=== PATIENT | male | born 1995 | race Caucasian/White ===

== ENCOUNTER → 2017-06-19 | Outpatient (CLI) | payer BC, OTHER ==
[2016-04-14 08:20] VITALS: BP 117/80
--- NOTE | 2017-06-19 12:14 | RAD ---
Bilateral ribs and single view chest 06/19/2017. Clinical indication: Bilateral rib pain, greater on the left. Comparison: None. Findings: Cardiac and mediastinal silhouettes are unremarkable. No pleural effusion, pneumothorax or focal consolidation. No evidence of acute displaced rib fracture deformity. Impression: 1. No acute cardiopulmonary abnormality. 2. No evidence of acute displaced rib fracture deformity.
== END | disposition home or self-care (01) ==
LOC: PMG 09:29
PROVIDERS: ATTEND Physician Assistant Medical
DX: R07.81 Pleurodynia (principal)
CPT/HCPCS: 71111

== ENCOUNTER → 2017-07-30 | Outpatient (CLI) | payer BC, OTHER ==
[2016-04-14 08:20] VITALS: BP 117/80
--- NOTE | 2017-07-30 16:04 | RAD ---
2 views right hand 07/30/2017 2:00 AM Indication: RIGHT HAND PAIN, injury today Comparison: None Findings: There is a nondisplaced, obliquely oriented fracture through the mid, fourth metacarpal. Evaluation of the base of the metacarpal is limited by overlying structures. No other definitive fractures seen. No dislocation is identified. Impression: Fracture of the mid fourth metacarpal as described.
== END | disposition home or self-care (01) ==
LOC: PMG 15:34
PROVIDERS: ATTEND Physician Assistant Medical
DX: S62.394A Other fracture of fourth metacarpal bone, right hand, initial encounter for closed fracture (principal); X58.XXXA Exposure to other specified factors, initial encounter; Y93.89 Activity, other specified; Y92.89 Other specified places as the place of occurrence of the external cause; Y99.8 Other external cause status
CPT/HCPCS: 73120

== ENCOUNTER → 2017-09-11 | Outpatient (CLI) | payer BC ==
[2016-04-14 08:20] VITALS: BP 117/80
--- NOTE | 2017-09-11 09:31 | RAD ---
Right hand, 2 views, 09/11/2017: History: Follow-up fracture Comparison is made to a study from 08/20/2017. Images were obtained through a radiopaque cast partially compromising bony detail. The nondisplaced fracture of the fourth metacarpal shaft is unchanged in position. The fracture line is still visible. A small amount of radiopaque debris is again noted projected over the cast. IMPRESSION: Stable fourth metacarpal fracture.
== END | disposition home or self-care (01) ==
LOC: PMG 08:59
PROVIDERS: ATTEND Physician Assistant Medical
DX: S62.344G Nondisplaced fracture of base of fourth metacarpal bone, right hand, subsequent encounter for fracture with delayed healing (principal); X58.XXXD Exposure to other specified factors, subsequent encounter
CPT/HCPCS: 73120